=== PATIENT | female | born 1960 | race Caucasian/White ===

== ENCOUNTER 2023-03-31 17:15 | Emergency (ER) | payer BC, OTHER ==
[~2023-03-31] VITALS: Ht 160 cm; Wt 68.1 kg
[2023-03-31 18:48] VITALS: BP 122/85; PULSE 74; RESP 18; TEMP 97.9; O2SAT 98
[2023-03-31] MEDS ORDERED: ONDANSETRON ODT 4 MG TAB PO ONE (19:00)
[2023-03-31] MEDS ORDERED: HYDROcodone-ACET 5/325MG TAB PO ONE (19:00)
[2023-03-31] MEDS ORDERED: ZOFR4T PO (19:59)
[2023-03-31] MEDS ORDERED: HYDR-4902 PO (19:59)
== END 2023-03-31 20:24 | disposition home or self-care (01) ==
LOC: ER 17:15
DX: S52.502A Unspecified fracture of the lower end of left radius, initial encounter for closed fracture (principal); S52.612A Displaced fracture of left ulna styloid process, initial encounter for closed fracture; F17.210 Nicotine dependence, cigarettes, uncomplicated; F12.10 Cannabis abuse, uncomplicated; Z90.710 Acquired absence of both cervix and uterus; W10.8XXA Fall (on) (from) other stairs and steps, initial encounter; Y93.89 Activity, other specified; Y92.89 Other specified places as the place of occurrence of the external cause; Y99.8 Other external cause status
CPT/HCPCS: 29125; 72131; 73110; 73562; 99284; Q0162